=== PATIENT | female | born 1980 | race Hispanic/Latino ===

== ENCOUNTER 2022-03-25 13:49 | Emergency (ER) | payer OTHER, SELFPAY ==
[~2022-03-25] VITALS: Ht 162.6 cm; Wt 72.1 kg
[2022-03-25] MEDS ORDERED: QUET1TAB17 PO (14:03)
[2022-03-25] MEDS ORDERED: BUPR-69 PO (14:03)
[2022-03-25] MEDS ORDERED: ZOLO100T PO (14:03)
[2022-03-25] MEDS ORDERED: CLON1TAB17 PO (14:03)
[2022-03-25] MEDS ORDERED: HYDR50TA70 PO (14:03)
[2022-03-25 15:39] LABS: BASO # 0.1 10^3/uL (0.0-0.2); BASO % 0.8 % (0.0-1.0); EOS # 0.1 10^3/uL (0.0-0.5); EOS % 1.6 % (0.0-3.0); HEMATOCRIT 43.3 % (36.0-47.0); HEMOGLOBIN 14.8 g/dl (12.0-15.5); LYMPH # 1.9 10^3/uL (1.5-5.0); LYMPH % 21.4 % (24.0-44.0); MEAN CORPUSCULAR HEMOGLOBIN 31.8 pg (27.0-33.0); MEAN CORPUSCULAR HGB CONC 34.2 g/dl (32.0-36.5); MEAN CORPUSCULAR VOLUME 93.1 fl (80.0-96.0); MONO # 0.6 10^3/uL (0.0-0.8); MONO % 7.3 % (2.0-8.0); NEUTROPHILS % 68.3 % (36.0-66.0); PLATELET COUNT, AUTOMATED 336 10^3/uL (150-450); RED BLOOD COUNT 4.65 10^6/uL (4.00-5.40); WHITE BLOOD COUNT 8.8 10^3/uL (4.0-10.0)
[2022-03-25 16:09] LABS: HCG, SERUM QUALITATIVE NEGATIVE (NEGATIVE)
[2022-03-25 16:18] LABS: ALBUMIN 4.1 GM/DL (3.2-5.2); ALT/SGPT 35 U/L (12-78); BILIRUBIN,DIRECT 0.1 MG/DL (0.0-0.2); BILIRUBIN,TOTAL 0.3 MG/DL (0.2-1.0); BLOOD UREA NITROGEN 15 MG/DL (7-18); CALCIUM LEVEL 10.2 MG/DL (8.5-10.1); CARBON DIOXIDE LEVEL 23 MEQ/L (21-32); CHLORIDE LEVEL 106 MEQ/L (98-107); CREATININE FOR GFR 0.74 MG/DL (0.55-1.30); GLOMERULAR FILTRATION RATE > 60.0 (>58); GLUCOSE, FASTING 94 MG/DL (70-100); LIPASE 141 U/L (73-393); SODIUM LEVEL 135 MEQ/L (136-145); TOTAL PROTEIN 7.3 GM/DL (6.4-8.2)
[2022-03-25] MEDS ORDERED: KETOROLAC 60MG 2ML VIAL IM ONE (17:25)
[2022-03-25 19:31] VITALS: BP 123/82
[2022-03-25] MEDS ORDERED: NAPR-837 PO (19:34)
== END 2022-03-25 19:36 | disposition home or self-care (01) ==
LOC: M ED 16:53
DX: D25.9 Leiomyoma of uterus, unspecified (principal); N83.202 Unspecified ovarian cyst, left side; Z79.899 Other long term (current) drug therapy
CPT/HCPCS: 36415; 76830; 76856; 80048; 80076; 83690; 84703; 85025; 93976; 96372; 99283; J1885

== ENCOUNTER 2022-04-09 09:03 | Day surgery (SDC) | payer OTHER ==
[~2022-04-09] VITALS: Ht 162.6 cm; Wt 70.3 kg
[~2022-04-09 09:03] MED LIST: BUPR-69 PO; CLON1TAB17 PO; HYDR50TA70 PO; NAPR-837 PO; QUET1TAB17 PO; ZOLO100T PO; ceFAZolin SOD 2 GM in IV 1 EA IV ONE
[2022-04-09 09:46] LABS: HEMATOCRIT 38.4 % (36.0-47.0); HEMOGLOBIN 13.2 g/dl (12.0-15.5); MEAN CORPUSCULAR HEMOGLOBIN 32.1 pg (27.0-33.0); MEAN CORPUSCULAR HGB CONC 34.4 g/dl (32.0-36.5); MEAN CORPUSCULAR VOLUME 93.4 fl (80.0-96.0); PLATELET COUNT, AUTOMATED 334 10^3/uL (150-450); RED BLOOD COUNT 4.11 10^6/uL (4.00-5.40); WHITE BLOOD COUNT 6.7 10^3/uL (4.0-10.0)
[2022-04-09] MEDS ORDERED: LR 1,000 ML IV SCH ×2 (09:50→14:50)
[2022-04-09] MEDS ORDERED: ROCURONIUM BROMIDE 50 MG/5 ML VIAL As Ordered ONE ×2 (12:09→14:04)
[2022-04-09] MEDS ORDERED: LIDOCAINE 2% 100MG/5ML SDV (FOR ANES.) As Ordered ONE (12:09)
[2022-04-09] MEDS ORDERED: propofoL 200 MG/20 ML VIAL As Ordered ONE (12:09)
[2022-04-09] MEDS ORDERED: dexameTHASONE 4 MG/ML 1ML VIAL (J1100 PER 1MG) As Ordered ONE (12:10)
[2022-04-09] MEDS ORDERED: ONDANSETRON 4MG 2ML VIAL As Ordered ONE (12:10)
[2022-04-09] MEDS ORDERED: fentaNYL 250 MCG/5 ML INJECTION As Ordered ONE (12:11)
[2022-04-09] MEDS ORDERED: HYDROmorphone HCL 2MG/ML 1ML VIAL As Ordered ONE (12:12)
[2022-04-09] MEDS ORDERED: MIDAZOLAM INJ 2MG/2ML VIAL (J2250 PER 1MG) As Ordered ONE (12:12)
[2022-04-09] MEDS ORDERED: BUPIVACAINE HCL 0.25% 30ML VIAL As Ordered ONE (13:50)
[2022-04-09] MEDS ORDERED: KETOROLAC 60MG 2ML VIAL As Ordered ONE (14:00)
[2022-04-09] MEDS ORDERED: SUGAMMADEX SODIUM 500 MG/5 ML VIAL (BRIDION) As Ordered ONE (14:25)
[2022-04-09] MEDS ORDERED: MORPHINE 2 MG/ML 1ML VIAL IV PRN (14:50)
[2022-04-09] MEDS ORDERED: fentaNYL 100 MCG/2 ML INJECTION IV PRN (14:50)
[2022-04-09] MEDS ORDERED: ONDANSETRON 4MG 2ML VIAL IV PRN (14:50)
[2022-04-09] MEDS ORDERED: oxyCODONE 5MG TAB PO PRN ×3 (14:50→15:05)
[2022-04-09 16:52] VITALS: BP 101/59
== END 2022-04-09 16:55 | disposition home or self-care (01) ==
LOC: M SDC 09:03
PROVIDERS: ATTEND Obstetrics & Gynecology
DX: N83.202 Unspecified ovarian cyst, left side (principal); N73.6 Female pelvic peritoneal adhesions (postinfective); Z79.899 Other long term (current) drug therapy; Z79.1 Long term (current) use of non-steroidal anti-inflammatories (NSAID)
CPT/HCPCS: 36415; 49322; 81025; 85027; 86850; 86900; 86901; 87070; J0690; J1100; J1170; J1885; J2250; J2405; J3010

== ENCOUNTER → 2022-10-20 | Outpatient (CLI) | payer OTHER ==
[~2022-10-20] MED LIST changes: -ceFAZolin SOD 2 GM in IV 1 EA IV ONE
== END ==
LOC: M WHC 13:29
PROVIDERS: ATTEND Nurse Practitioner Primary Care
DX: N64.4 Mastodynia (principal); Z80.3 Family history of malignant neoplasm of breast
CPT/HCPCS: 76642; 77066; G0279

== ENCOUNTER 2022-11-04 02:52 | Emergency (ER) | payer OTHER ==
[2022-11-04 02:52] VITALS: BP 128/88
[2022-11-04] MEDS ORDERED: PSEUDOEPHEDRINE 30 MG TAB PO ONE (04:05)
[2022-11-04] MEDS ORDERED: PSEU30TA88 PO (04:06)
[2022-11-04] MEDS ORDERED: FLON27.5 NARES (04:06)
== END 2022-11-04 04:15 | disposition home or self-care (01) ==
LOC: M ED 02:52
DX: J06.9 Acute upper respiratory infection, unspecified (principal); Z79.899 Other long term (current) drug therapy

== ENCOUNTER 2022-12-04 19:39 | Emergency (ER) | payer OTHER ==
[~2022-12-04] VITALS: Ht 162.6 cm; Wt 71.7 kg
[~2022-12-04 19:39] MED LIST changes: +FLON27.5 NARES; +PSEU30TA88 PO
[2022-12-04 19:41] VITALS: BP 133/88
[2022-12-04] MEDS ORDERED: NAPR-885 PO (22:05)
[2022-12-04] MEDS ORDERED: LIDO15SO PO (22:05)
[2022-12-04] MEDS ORDERED: LIDOCAINE VISCOUS 2% SOLN 15ML UDC SS ONE (22:05)
[2022-12-04] MEDS ORDERED: KETOROLAC 60MG 2ML VIAL IM ONE (22:05)
== END 2022-12-04 22:35 | disposition home or self-care (01) ==
LOC: M ED 19:39
DX: J02.9 Acute pharyngitis, unspecified (principal)
CPT/HCPCS: 96372; 99282; J1885